=== PATIENT | female | born 1965 | race Caucasian/White ===

== ENCOUNTER 2016-12-31 13:48 | Inpatient (IN) | payer MEDICAID, OTHER ==
[~2016-12-31] VITALS: Ht 167.6 cm; Wt 73.5 kg
[2016-12-31] MEDS ORDERED: DiphenhydrAMINE HCL 50 MG/ML VIAL ONE (13:56)
[2016-12-31] MEDS ORDERED: LORazepam 2 MG/ML VIAL ONE (13:56)
[2016-12-31] MEDS ORDERED: HALOPERIDOL LACTATE 5 MG/ML VIAL ONE (13:56)
[2016-12-31] MEDS ORDERED: DiphenhydrAMINE HCL 50 MG/ML VIAL IM ONE (14:00)
[2016-12-31] MEDS ORDERED: HALOPERIDOL LACTATE 5 MG/ML VIAL IM ONE (14:00)
[2016-12-31] MEDS ORDERED: LORazepam 2 MG/ML VIAL IM ONE (14:00)
[2016-12-31 17:05] LABS: BASOPHILS % (AUTO) 0.9 % (0.0-2.0); EOSINOPHILS % (AUTO) 0.6 % (1.0-6.0); HEMATOCRIT 36.9 % (36-46); HEMOGLOBIN 12.7 g/dL (12.0-16.0); LYMPHOCYTES # (AUTO) 4.1 K/uL (1.0-4.8); LYMPHOCYTES % (AUTO) 47.4 % (22.0-44.0); MEAN CORPUSCULAR HEMOGLOBIN 29.7 pg (26.0-34.0); MEAN CORPUSCULAR HGB CONC 34.3 G/dL (31.0-37.0); MEAN CORPUSCULAR VOLUME 87 fL (80-100); MONOCYTES # (AUTO) 0.4 K/uL (0.1-1.0); MONOCYTES % (AUTO) 5.1 % (2.0-9.0); PLATELET COUNT (AUTO) 240 K/uL (150-450); RED BLOOD CELL COUNT(AUTO) 4.26 MIL/uL (4.00-5.20); RED CELL DISTRIBUTION WIDTH 12.8 % (11.5-14.5); WHITE BLOOD COUNT (AUTO) 8.6 K/uL (4.5-11.0)
[2016-12-31 17:13] LABS: ANION GAP 8 mmol/L (8-16); CALCIUM, TOTAL 8.8 mg/dL (8.8-10.5); CARBON DIOXIDE 27 mmol/L (22-29); CHLORIDE 105 mmol/L (98-107); CREATININE 0.56 mg/dL (0.60-1.30); GLOMERULAR FILTR. RATE CALC > 60 mL/min (>60); POTASSIUM 3.8 mmol/L (3.5-5.1); SODIUM SERUM 140 mmol/L (136-145); UREA NITROGEN, BLOOD 11 mg/dL (7-18)
[2016-12-31] MEDS ORDERED: SODIUM CHLORIDE 0.9% 1,000 ML IV ONE (17:15)
[2016-12-31 17:18] LABS: ALANINE AMINOTRANSFERASE 25 U/L (12-78); ALBUMIN 3.4 g/dL (3.4-5.0); ASPARTATE AMINOTRANSFERASE 25 U/L (15-37); BILIRUBIN,TOTAL 0.4 mg/dL (0.1-1.0); TOTAL PROTEIN, SERUM 7.1 g/dL (6.4-8.2)
[2016-12-31] MEDS ORDERED: ZOLPIDEM TARTRATE 10 MG TABLET PO PRN (17:45)
[2016-12-31] MEDS ORDERED: LORazepam 2 MG TABLET PO PRN (17:45)
[2016-12-31] MEDS ORDERED: HALOPERIDOL 5 MG TABLET PO PRN (17:45)
[2016-12-31 18:59] LABS: APPEARANCE,URINE CLEAR (CLEAR); GLUCOSE, URINE (UA) NEGATIVE (NEGATIVE); KETONES,URINE NEGATIVE (NEGATIVE); LEUKOCYTE ESTERASE ,URINE NEGATIVE (NEGATIVE); OCCULT BLOOD,URINE SMALL (NEGATIVE); PROTEIN,URINE NEGATIVE (NEGATIVE)
[2016-12-31 19:03] LABS: ADD UA MICROSCOPIC YES
[2016-12-31 19:10] LABS: SQUAMOUS EPITHELIAL CELL,UR Few /LPF (None Seen)
[2016-12-31 19:12] LABS: RBC,URINE 0-2 /HPF (0-2)
[2016-12-31 19:45] VITALS: BP 137/87
[2017-01-01] MEDS ORDERED: ACETAMINOPHEN 325 MG TABLET PO PRN (08:45)
[2017-01-01 10:55] VITALS: BP 116/70
[2017-01-01] MEDS: IBUPROFEN 600 MG TABLET PO PRN (11:41)
[2017-01-01 16:11] VITALS: BP 127/61
[2017-01-01] MEDS: RisperiDONE 0.5 MG TABLET PO SCH (17:36)
[2017-01-02] MEDS: IBUPROFEN 600 MG TABLET PO PRN ×3 (06:35→13:53)
[2017-01-02 06:45] VITALS: BP 125/77
[2017-01-02 07:10] LABS: CHOL/HDL RATIO 2.8 (3.9-5.7); THYROID STIMULATING HORMONE 1.23 uIU/mL (0.36-3.74)
[2017-01-02 08:32] VITALS: BP 137/98
[2017-01-02] MEDS: RisperiDONE 0.5 MG TABLET PO SCH ×2 (08:47→16:20)
[2017-01-02 16:39] VITALS: BP 122/56
[2017-01-03 08:00] VITALS: BP 111/71
[2017-01-03] MEDS: RisperiDONE 0.5 MG TABLET PO SCH ×2 (08:51→17:26)
[2017-01-03 17:55] VITALS: BP 119/62
[2017-01-04 05:24] VITALS: BP 120/71
[2017-01-04] MEDS: RisperiDONE 0.5 MG TABLET PO SCH (08:04)
[2017-01-04 08:22] VITALS: BP 120/70
[2017-01-04] MEDS ORDERED: RISP.5 PO (13:20)
[2017-01-04] MEDS ORDERED: RisperiDONE 0.5 MG TABLET PO SCH (17:00)
== END 2017-01-04 14:25 | disposition home or self-care (01) | DRG 751 ==
LOC: EDUNIT# 13:48 → EMS 14:05 → 3EC 17:51
PROVIDERS: ADMIT Psychiatry & Neurology Psychiatry; ATTEND Psychiatry & Neurology Psychiatry
DX: F29 Unspecified psychosis not due to a substance or known physiological condition (principal); Z78.1 Physical restraint status; F15.10 Other stimulant abuse, uncomplicated; F10.10 Alcohol abuse, uncomplicated; F41.9 Anxiety disorder, unspecified; Y90.4 Blood alcohol level of 80-99 mg/100 ml; Z59.0 Homelessness; Z88.0 Allergy status to penicillin; Z98.891 History of uterine scar from previous surgery; Z79.899 Other long term (current) drug therapy
CPT/HCPCS: 84439; 84443; 96360; 96372; 99291; G0480; J1200; J1630; J2060; J7030

== ENCOUNTER 2017-08-18 21:00 | Emergency (ER) | payer MEDICAID, OTHER ==
[~2017-08-18] VITALS: Ht 167.6 cm; Wt 80.5 kg
[~2017-08-18 21:00] MED LIST: RISP.5 PO
[2017-08-18] MEDS ORDERED: NAPROXEN 250 MG TABLET PO ONE (22:45)
[2017-08-18 23:30] VITALS: BP 134/84
== END 2017-08-18 23:47 | disposition home or self-care (01) ==
LOC: EMS 21:01
DX: M25.561 Pain in right knee (principal); M25.562 Pain in left knee; M79.671 Pain in right foot; M79.672 Pain in left foot; F15.90 Other stimulant use, unspecified, uncomplicated; G89.29 Other chronic pain; Z88.0 Allergy status to penicillin
CPT/HCPCS: 99283